=== PATIENT | male | born 1980 | race Caucasian/White ===

== ENCOUNTER 2016-11-04 13:13 | Emergency (ER) | payer MEDICAID ==
[~2016-11-04] VITALS: Ht 170.2 cm; Wt 47.6 kg
[2016-11-04 13:37] VITALS: BP 118/78
== END 2016-11-04 15:02 | disposition home or self-care (01) ==
LOC: EDBD 13:13 → ER 13:13
DX: S62.393A Other fracture of third metacarpal bone, left hand, initial encounter for closed fracture (principal); F17.210 Nicotine dependence, cigarettes, uncomplicated; F12.10 Cannabis abuse, uncomplicated; Z88.5 Allergy status to narcotic agent; Y04.2XXA Assault by strike against or bumped into by another person, initial encounter; Y93.89 Activity, other specified; Y99.8 Other external cause status; Y92.89 Other specified places as the place of occurrence of the external cause
CPT/HCPCS: 29125; 73130

== ENCOUNTER 2018-03-11 23:22 | Observation (INO) | payer MEDICAID, OTHER ==
[~2018-03-11] VITALS: Ht 167.6 cm; Wt 47.6 kg
[2018-03-12 00:35] LABS: Basophils # (auto) 0.1 uL; Basophils % (auto) 1.4 % (0.0-2.0); Eosinophils # (auto) 0.2 uL; Eosinophils % (auto) 2.5 % (0.0-7.0); Hematocrit 41.3 % (41.0-53.0); Lymphocytes # (auto) 2.6 uL; Lymphocytes % (auto) 28.1 % (10.0-50.0); Mean Corpuscular Hemoglobin 30.7 pg (28.0-32.0); Mean Corpuscular Volume 90.2 fL (80.0-100.0); Monocytes # (auto) 0.8 uL; Neutrophils # (auto) 5.4 uL; Platelet Count (auto) 267 10^3/uL (140-450); Red Blood Cells 4.58 10^6/uL (4.5-5.90); Red Cell Distribution Width 13.7 % (11.8-14.3); White Blood Cell 9.2 10^3/uL (4.4-10.8)
[2018-03-12 00:52] LABS: Albumin 3.4 g/dL (3.4-5.0); Calcium 8.6 mg/dL (8.5-10.1); Potassium 3.4 mmol/L (3.5-5.1)
[2018-03-12 00:57] LABS: Bilirubin, Total 0.2 mg/dL (0.2-1.0); Total Protein 6.9 g/dL (6.4-8.2)
[2018-03-12] MEDS ORDERED: SODIUM CHLORIDE 0.9% 1,000 ML IV ONE (06:55)
[2018-03-12] MEDS ORDERED: ALPRAZolam 0.5 MG TAB PO ONE (07:00)
[2018-03-12] MEDS ORDERED: OLANZapine 5 MG TAB PO ONE (07:00)
[2018-03-12 08:03] VITALS: BP 114/84
[2018-03-12 09:03] LABS: Urine Bacteria NONE SEEN /hpf (None Seen); Urine Blood Negative /uL (Negative); Urine Specific Gravity 1.011 (1.001-1.035); Urine Sperm PRESENT /hpf (None Seen); Urine WBC <1 /hpf (0 - 3)
[2018-03-12 09:48] LABS: Alcohol, Urine < 3.0 mg/dL (0-5); Amphetamine Screen, Urine NEGATIVE (NEGATIVE); Barbiturate Scree,Urine NEGATIVE (NEGATIVE); Benzodiazephine Screen, Urine POSITIVE (NEGATIVE); Cannabinoid Screen, Urine POSITIVE (NEGATIVE); Cocaine Screen, Urine NEGATIVE (NEGATIVE); Opiate Scree,Urine NEGATIVE (NEGATIVE); Phencyclidine Screen, Urine NEGATIVE (NEGATIVE)
== END 2018-03-12 08:50 | disposition left against medical advice (07) | DRG 145 ==
LOC: ER 23:22 → EDBD 23:22 → OVERFLOW 23:23 → ER 03-12 08:50
PROVIDERS: ADMIT Anesthesiology; ATTEND Anesthesiology
DX: R06.02 Shortness of breath (principal); F20.9 Schizophrenia, unspecified; J45.909 Unspecified asthma, uncomplicated; F31.9 Bipolar disorder, unspecified; E87.6 Hypokalemia; F12.10 Cannabis abuse, uncomplicated; F17.210 Nicotine dependence, cigarettes, uncomplicated; F41.9 Anxiety disorder, unspecified; Z59.0 Homelessness
CPT/HCPCS: 36415; 71046; 80053; 80307; 81001; 83735; 84443; 85025; 96360; 99285; G0378; J7030

== ENCOUNTER 2019-01-21 21:46 | Emergency (ER) | payer MEDICAID ==
[~2019-01-21] VITALS: Ht 170.2 cm; Wt 59.9 kg
[~2019-01-21 21:46] MED LIST: HYDR-4683 PO
[2019-01-21 22:13] VITALS: BP 99/70
[2019-01-21 23:03] LABS: Basophils # (auto) 0.1 uL; Basophils % (auto) 1.3 % (0.0-2.0); Eosinophils # (auto) 0.2 uL; Eosinophils % (auto) 1.9 % (0.0-7.0); Hematocrit 40.9 % (41.0-53.0); Hemoglobin 13.8 g/dL (13.5-17.5); Lymphocytes # (auto) 1.9 uL; Lymphocytes % (auto) 18.4 % (10.0-50.0); Mean Corpuscular Hemoglobin 30.5 pg (28.0-32.0); Mean Corpuscular Hgb Conc. 33.8 g/dL (32.0-36.0); Mean Corpuscular Volume 90.1 fL (80.0-100.0); Monocytes # (auto) 0.7 uL; Monocytes % (auto) 7.3 % (0.0-12.0); Neutrophils # (auto) 7.3 uL; Neutrophils % (auto) 71.1 % (37.0-80.0); Nucleated Red Blood Cells % 0.1 %; Platelet Count (auto) 237 10^3/uL (140-450); Red Blood Cells 4.53 10^6/uL (4.5-5.90); Red Cell Distribution Width 13.7 % (11.8-14.3); White Blood Cell 10.3 10^3/uL (4.4-10.8)
[2019-01-21] MEDS ORDERED: cefTRIAXone SOD 1,000 MG VL IM ONE (23:45)
[2019-01-22] MEDS ORDERED: LIDOCAINE 1% HCL (LOCAL ANESTH.) INJ 20ML MDV ONE (00:35)
== END 2019-01-22 00:52 | disposition home or self-care (01) ==
LOC: ER 21:48 → MERGE 21:48 → ER 01-22 00:52
DX: L02.411 Cutaneous abscess of right axilla (principal); L73.2 Hidradenitis suppurativa; F17.210 Nicotine dependence, cigarettes, uncomplicated; F12.10 Cannabis abuse, uncomplicated; F15.10 Other stimulant abuse, uncomplicated; Z88.6 Allergy status to analgesic agent
CPT/HCPCS: 10060; 36415; 85025; 96372; 99283; C1887; J0696; J2001

== ENCOUNTER 2019-01-23 09:06 | Emergency (ER) | payer MEDICAID ==
[~2019-01-23] VITALS: Ht 170.2 cm; Wt 60.3 kg
[2019-01-23 09:45] VITALS: BP 126/79
== END 2019-01-23 10:03 | disposition home or self-care (01) ==
LOC: MERGE 09:10 → ER 09:10
DX: L02.411 Cutaneous abscess of right axilla (principal); F17.210 Nicotine dependence, cigarettes, uncomplicated; F12.10 Cannabis abuse, uncomplicated; F15.10 Other stimulant abuse, uncomplicated; Z88.6 Allergy status to analgesic agent

== ENCOUNTER 2019-03-13 17:34 | Emergency (ER) | payer MEDICAID ==
[~2019-03-13] VITALS: Ht 170.2 cm; Wt 59.0 kg
[~2019-03-13 17:34] MED LIST changes: -HYDR-4683 PO; +HYDR-4833 PO
[2019-03-14 00:32] VITALS: BP 141/96
[2019-03-14] MEDS ORDERED: cefTRIAXone SOD 1,000 MG VL IM ONE (02:15)
[2019-03-14] MEDS ORDERED: methylPREDNISolone SOD SUCC 125 MG/2 ML VL IM ONE (02:15)
== END 2019-03-14 02:44 | disposition home or self-care (01) ==
LOC: ER 17:37
DX: J06.9 Acute upper respiratory infection, unspecified (principal)
CPT/HCPCS: 71046; 96372; 99283; J0696; J2930

== ENCOUNTER → 2019-09-13 | Emergency (ER) | payer MEDICAID ==
[~2019-09-13] VITALS: Ht 175.3 cm; Wt 68.0 kg
[2019-09-14 01:05] VITALS: BP 145/90
== END | disposition left against medical advice (07) ==
LOC: EDUNIT# 19:57 → ER 20:04 → EDBD 20:04
DX: R06.02 Shortness of breath (principal); F17.210 Nicotine dependence, cigarettes, uncomplicated
CPT/HCPCS: 71045

== ENCOUNTER 2020-03-26 19:07 | Emergency (ER) | payer MEDICAID ==
[~2020-03-26] VITALS: Ht 170.2 cm; Wt 72.6 kg
[2020-03-26 21:17] VITALS: BP 145/95
[2020-03-26] MEDS ORDERED: cefTRIAXone SOD 1,000 MG VL ONE (21:24)
[2020-03-26] MEDS ORDERED: cefTRIAXone SOD 1,000 MG VL IM ONE (21:30)
== END 2020-03-26 21:32 | disposition home or self-care (01) ==
LOC: ER 19:07
DX: S50.862A Insect bite (nonvenomous) of left forearm, initial encounter (principal); W57.XXXA Bitten or stung by nonvenomous insect and other nonvenomous arthropods, initial encounter; Y93.89 Activity, other specified; Y92.89 Other specified places as the place of occurrence of the external cause; Y99.8 Other external cause status
CPT/HCPCS: 96372; 99283; J0696

== ENCOUNTER 2020-03-27 17:15 | Emergency (ER) | payer MEDICAID ==
[~2020-03-27] VITALS: Ht 170.2 cm; Wt 72.6 kg
[2020-03-27 17:25] VITALS: BP 136/95
[2020-03-27] MEDS ORDERED: cefTRIAXone SOD 1,000 MG VL IM ONE (22:15)
== END 2020-03-27 23:17 | disposition home or self-care (01) ==
LOC: ER 17:15
DX: T63.301D Toxic effect of unspecified spider venom, accidental (unintentional), subsequent encounter (principal); L02.414 Cutaneous abscess of left upper limb; F17.210 Nicotine dependence, cigarettes, uncomplicated; F41.9 Anxiety disorder, unspecified; J45.909 Unspecified asthma, uncomplicated; F32.9 Major depressive disorder, single episode, unspecified; F20.9 Schizophrenia, unspecified; Z59.0 Homelessness; Z79.899 Other long term (current) drug therapy; Z88.5 Allergy status to narcotic agent
CPT/HCPCS: 10060; 96372; 99283; J0696

== ENCOUNTER 2020-03-29 11:38 | Emergency (ER) | payer MEDICAID ==
[~2020-03-29] VITALS: Ht 170.2 cm; Wt 73.0 kg
[2020-03-29 12:00] VITALS: BP 129/97
== END 2020-03-29 12:53 | disposition home or self-care (01) ==
LOC: ER 11:38
DX: Z48.01 Encounter for change or removal of surgical wound dressing (principal)

== ENCOUNTER 2020-06-11 18:45 | Emergency (ER) | payer MEDICAID ==
[~2020-06-11] VITALS: Ht 170.2 cm; Wt 65.8 kg
[2020-06-11 20:28] VITALS: BP 123/94
== END 2020-06-11 21:37 | disposition home or self-care (01) ==
LOC: ER 18:45
DX: S90.822A Blister (nonthermal), left foot, initial encounter (principal); L03.116 Cellulitis of left lower limb; F17.210 Nicotine dependence, cigarettes, uncomplicated; J45.909 Unspecified asthma, uncomplicated; F20.9 Schizophrenia, unspecified; F32.9 Major depressive disorder, single episode, unspecified; Z79.899 Other long term (current) drug therapy; Z88.5 Allergy status to narcotic agent; X58.XXXA Exposure to other specified factors, initial encounter; Y93.89 Activity, other specified; Y92.89 Other specified places as the place of occurrence of the external cause; Y99.8 Other external cause status

== ENCOUNTER 2020-06-17 08:50 | Emergency (ER) | payer MEDICAID ==
[~2020-06-17] VITALS: Ht 170.2 cm; Wt 65.8 kg
[2020-06-17 10:42] VITALS: BP 140/70
== END 2020-06-17 11:37 | disposition home or self-care (01) ==
LOC: ER 08:50
DX: B68.9 Taeniasis, unspecified (principal); F17.210 Nicotine dependence, cigarettes, uncomplicated; F12.10 Cannabis abuse, uncomplicated; F15.10 Other stimulant abuse, uncomplicated; J45.909 Unspecified asthma, uncomplicated; Z88.6 Allergy status to analgesic agent; Z59.0 Homelessness

== ENCOUNTER 2020-06-19 07:31 | Emergency (ER) | payer MEDICAID ==
[~2020-06-19] VITALS: Ht 177.8 cm; Wt 69.4 kg
[2020-06-19 07:43] VITALS: BP 147/93
== END 2020-06-19 11:17 | disposition left against medical advice (07) ==
LOC: ER 07:31
DX: S00.83XA Contusion of other part of head, initial encounter (principal); S50.01XA Contusion of right elbow, initial encounter; S80.01XA Contusion of right knee, initial encounter; J45.909 Unspecified asthma, uncomplicated; F20.9 Schizophrenia, unspecified; F17.210 Nicotine dependence, cigarettes, uncomplicated; Z59.0 Homelessness; Z79.899 Other long term (current) drug therapy; Z88.5 Allergy status to narcotic agent; Y08.89XA Assault by other specified means, initial encounter; Y93.89 Activity, other specified; Y92.512 Supermarket, store or market as the place of occurrence of the external cause; Y99.8 Other external cause status
CPT/HCPCS: 70486; 99284; J7030

== ENCOUNTER 2020-08-15 05:47 | Emergency (ER) | payer MEDICAID ==
[~2020-08-15] VITALS: Ht 170.2 cm; Wt 72.6 kg
[2020-08-15 07:30] VITALS: BP 155/103
== END 2020-08-15 09:19 | disposition home or self-care (01) ==
LOC: ER 05:47
DX: M77.8 Other enthesopathies, not elsewhere classified (principal); J45.909 Unspecified asthma, uncomplicated; Z88.6 Allergy status to analgesic agent
CPT/HCPCS: 73080

== ENCOUNTER 2023-09-28 20:29 | Emergency (ER) | payer MEDICAID ==
[~2023-09-28] VITALS: Ht 170.2 cm; Wt 61.4 kg
[2023-09-29 03:15] VITALS: BP 126/89; PULSE 76; RESP 16; O2SAT 98
== END 2023-09-29 03:21 | disposition home or self-care (01) ==
LOC: ER 20:29
DX: F29 Unspecified psychosis not due to a substance or known physiological condition (principal); F17.210 Nicotine dependence, cigarettes, uncomplicated; F12.10 Cannabis abuse, uncomplicated; F15.10 Other stimulant abuse, uncomplicated; F32.9 Major depressive disorder, single episode, unspecified; J45.909 Unspecified asthma, uncomplicated; F20.9 Schizophrenia, unspecified; Z59.00 Homelessness unspecified; Z88.6 Allergy status to analgesic agent